=== PATIENT | male | born 1970 | race African-American/Black ===

== ENCOUNTER 2017-06-24 00:24 | Emergency (ER) | payer OTHER ==
[2017-06-24 00:44] VITALS: TEMP 98; BMI 26.4
[2017-06-24] MEDS ORDERED: FLUORESCEIN NA 1 EA STRIP OS ONE (01:09)
[2017-06-24] MEDS ORDERED: TETRACAINE 0.5% HCL 0.6ML DROPPER.BOTTLE OS ONE (01:18)
[2017-06-24] MEDS ORDERED: TETRACAINE 0.5% OPHTH SOLN 2 ML BOTTLE ONE (01:18)
--- NOTE | 2017-06-24 01:18 | PDOC ---
History of Present Illness - General Chief Complaint: Eye Problem Stated Complaint: L EYE SWELLING Time Seen by Provider: 06/24/17 00:41 - History of Present Illness Initial Comments: 06/24/17 01:23 "The patient is a 47 year old male, with no significant past medical history, who presents to the emergency department with left eye redness since earlier this afternoon. The patient reports that he works at a [employer] and while at work earlier this afternoon, he felt as if something went into his eye. Pt denies being around any heavy machinery, welding, hammering, or construction. The patient reports having a foreign body sensation that persisted until he rinsed his eye out. He states that his eye feels better but has been slightly irritated since that time. The patient denies fever, chills, headache, blurry vision, double vision or any changes in vision. The patient reports that he does not wear contact lenses. Allergies: None reported. Past Surgical History: None reported. Social History: Non-smoker. Denies alcohol or drug use. " Past History - Past Medical History Allergies/Adverse Reactions: Allergies Allergy/AdvReac Type Severity Reaction Status Date / Time No Known Allergies Allergy Verified 06/24/17 00:44 Home Medications: Ambulatory Orders Amlodipine Besylate 5 mg PO DAILY #14 tablet 06/24/17 Erythromycin 0.5% Eye Ointment [Erythromycin 0.5% Eye Ointment -] 1 applic OS TID 5 Days #1 tube 06/24/17 - Suicide/Smoking/Psychosocial Hx Smoking History: Never smoked Have you smoked in the past 12 months: No Information on smoking cessation initiated: No Hx Alcohol Use: No Drug/Substance Use Hx: No Review of Systems - Review of Systems Comments:: 06/24/17 01:27 "GENERAL/CONSTITUTIONAL: No fever or chills. No weakness. HEAD, EYES, EARS, NOSE AND THROAT: +Left eye erythema. No change in vision. No ear pain or discharge. No sore throat. CARDIOVASCULAR: No chest pain or shortness of breath. RESPIRATORY: No cough, wheezing, or hemoptysis. GASTROINTESTINAL: No nausea, vomiting, diarrhea or constipation. GENITOURINARY: No dysuria, frequency, or change in urination. MUSCULOSKELETAL: No joint or muscle swelling or pain. No neck or back pain. SKIN: No rash. NEUROLOGIC: No headache, vertigo, loss of consciousness, or change in strength/ sensation. ENDOCRINE: No increased thirst. No abnormal weight change. HEMATOLOGIC/LYMPHATIC: No anemia, easy bleeding, or history of blood clots. ALLERGIC/IMMUNOLOGIC: No hives or skin allergy. " *Physical Exam - Vital Signs Last Vital Signs Temp Pulse Resp BP Pulse Ox 98.0 F 100 H 18 180/114 100 06/24/17 00:43 06/24/17 00:43 06/24/17 00:43 06/24/17 00:43 06/24/17 00:43 - Physical Exam Comments: 06/24/17 01:27 "GENERAL: Awake, alert, and fully oriented, in no acute distress. HEAD: No signs of trauma. EYES: (+) Conjunctivitis. PERRLA, Normal EOMI. Normal visual acuity. ENT: Auricles normal inspection, hearing grossly normal, nares patent, oropharynx clear without exudates. Moist mucosa. NECK: Nontender, no stepoffs, normal ROM, supple, no lymphadenopathy, JVD, or masses. LUNGS: Breath sounds equal, clear to auscultation bilaterally. No wheezes, and no crackles. HEART: Regular rate and rhythm, normal S1 and S2, no murmurs, rubs or gallops. ABDOMEN: Soft, nontender, normoactive bowel sounds. No guarding, no rebound. No masses. EXTREMITIES: Normal range of motion, no edema. No clubbing or cyanosis. No cords, erythema, or tenderness. NEUROLOGICAL: Cranial nerves II through XII intact. 5/5 strength and sensation in all extremities. Normal speech, normal gait, normal cerebellar function. SKIN: Warm, dry, normal turgor, no rashes or lesions noted. " Medical Decision Making - Medical Decision Making 06/24/17 01:10 47 M with L eye conjunctivitis. Fluorescein stain reveals punctate corneal ulcer /abrasion. No foreign body visualized. - erythromycin ointment - Ophtho f/u tomorrow Pt's vitals notable for HTN. I spoke with pt regarding this and he states that he is aware. He plans to f/u with his PMD for BP management. Pt denies CP/SOB/leg swelling/headache. Pt given amlodipine 5mg. Script for 2 weeks worth of amlodipine sent to pharmacy. I discussed the physical exam findings, ancillary test results and final diagnoses with the patient. I answered all of the patient's questions. The patient was satisfied with the care received and felt comfortable with the discharge plan and treatment plan. The patient agrees to follow up with the primary care physician within 24-72 hours. *DC/Admit/Observation/Transfer Diagnosis at time of Disposition: Corneal abrasion - Discharge Dispostion Disposition: HOME - Prescriptions Prescriptions: Amlodipine Besylate 5 mg PO DAILY #14 tablet Erythromycin 0.5% Eye Ointment [Erythromycin 0.5% Eye Ointment -] 1 applic OS TID 5 Days #1 tube - Referrals Referrals: Royer Blandon MD [Staff Physician] - - Patient Instructions Printed Discharge Instructions: DI for Corneal Abrasion Additional Instructions: You have a corneal abrasion (a scratch on the surface of your eye). You must use the erythromycin ointment in your eye to prevent infection. Apply it four times daily for 5 days. Please call the number provided to make an appointment with an shift nurse manager within 48 hours to ensure that your abrasion is healing appropriately. If you experience worsening pain, redness, blurred vision, or any other concerning symptoms, return to the ER immediately. Your blood pressure today was quite elevated. You must see your primary doctor and have this addressed as soon as possible. In the meantime, take the amlodipine as prescribed every day. Uncontrolled blood pressure can lead to serious illness, including heart and kidney failure, disability, or even . - Post Discharge Activity Forms/Work/School Notes: Back to Work - Attestations Physician Attestion: 06/24/17 02:13 I, Dr. Savage Urias MD, attest that this document has been prepared under my direction and personally reviewed by me in its entirety. I further attest, that it accurately reflects all work, treatment, procedures and medical decision -making performed by me.
[2017-06-24] MEDS ORDERED: amLODIPine BESYLATE 5 MG TABLET (FP) PO ONE (02:18)
[2017-06-24] MEDS ORDERED: amLODIPine BESYLATE 5 MG TABLET (FP) ONE (02:19)
[2017-06-24 03:08] VITALS: BP 160/102; PULSE 89
== END 2017-06-24 03:08 | disposition home or self-care (01) ==
LOC: JER 00:24
DX: S05.02XA Injury of conjunctiva and corneal abrasion without foreign body, left eye, initial encounter (principal); X58.XXXA Exposure to other specified factors, initial encounter; Y93.89 Activity, other specified; Y92.9 Unspecified place or not applicable; Y99.0 Civilian activity done for income or pay
CPT/HCPCS: 99281-25